=== PATIENT | male | born 1955 | race Caucasian/White ===

== ENCOUNTER 2020-04-20 20:18 | Inpatient (IN) ==
[2020-04-20] MEDS ORDERED: SODIUM CHLORIDE 0.9% 1,000 ML IV STA (21:05)
[2020-04-20 21:47] LABS: Basophils % 0.2 % (0.0-0.8); Eosinophils % 0.2 % (0.00-10.9); Hematocrit 42.4 VOL% (42.0-52.0); Hemoglobin 14.2 GM/DL (14.0-18.0); Immature Granulocytes % 0.4 %; Immature Granulocytes Absolute 0.02 #; Lymphocytes # 0.6 10*3/uL (1.4-4.0); Mean Corpuscular HGB Conc 33.5 GM/DL (32-36); Mean Corpuscular Volume 83.6 FL (87-102); Mean Platelet Volume 11.4 FL (9.6-12.0); Monocytes % 10.8 % (1.7-12.7); Neutrophils % 77.4 % (38.7-73.9); Platelet Count 201 T/CUMM (130-400); Red Blood Count 5.07 MC/CUMM (3.8-5.5); Red Cell Distribution Width 13.9 % (9.3-17.3); White Blood Count 5.3 T/CUMM (4-12)
[2020-04-20 22:08] LABS: Albumin 3.2 G/DL (3.4-5.0); Bilirubin,Total 0.4 MG/DL (0.2-1.0); Calcium 8.1 MG/DL (8.5-10.1); Ferritin 848.6 ng/ml (26-388); Osmolality,Calculated 279.8 MOS/KG (273-304); Total Protein 6.7 G/DL (6.4-8.3)
[2020-04-20 22:11] LABS: Lymphocytes 15 % (20-55); Segmented Neutrophils 77 % (50-85); Total Cells Counted 100
[2020-04-20 22:12] LABS: Platelet Estimate Adequate
[2020-04-20 22:42] LABS: ABG Base Excess -3.5 MMOL/L (-2.5-2.5); ABG HCO3 21.5 MMOL/L (20-26); ABG PH 7.408 (7.35-7.45); ABG PO2 72.9 MM HG (80-95); ABG TCO2 17.6 MMOL/L (23-27); Allen Test Positive; Pt O2 Delivery Device Room Air
[2020-04-20] MEDS ORDERED: LEVOFLOXACIN INJ 750 MG in PREMIX 1 EACH IV STA (23:28)
[2020-04-21] MEDS ORDERED: rOPINIRole 1 MG TABLET PO ONE (01:29)
[2020-04-21] MEDS ORDERED: ONDANSETRON 4 MG/2 ML VIAL IV PRN (02:20)
[2020-04-21] MEDS ORDERED: hydrALAZINE 20 MG/1 ML VIAL IV PRN (02:20)
[2020-04-21] MEDS: ENOXAPARIN 60 MG/0.6 ML SYRINGE SUBCUT SCH ×2 (03:45→14:04)
[2020-04-21] MEDS: SODIUM CHLORIDE 0.9% 1,000 ML IV SCH ×4 (03:45→22:59)
[2020-04-21 04:20] LABS: Basophils % 0.2 % (0.0-0.8); Eosinophils % 0.2 % (0.00-10.9); Hematocrit 37.9 VOL% (42.0-52.0); Hemoglobin 12.7 GM/DL (14.0-18.0); Immature Granulocytes % 0.2 %; Immature Granulocytes Absolute 0.01 #; Lymphocytes % 19.1 % (21.2-54.2); Mean Corpuscular HGB Conc 33.5 GM/DL (32-36); Mean Corpuscular Volume 83.1 FL (87-102); Mean Platelet Volume 10.4 FL (9.6-12.0); Monocytes % 12.7 % (1.7-12.7); Neutrophils % 67.6 % (38.7-73.9); Platelet Count 148 T/CUMM (130-400); Red Blood Count 4.56 MC/CUMM (3.8-5.5)
[2020-04-21 04:52] LABS: Hypochromasia 1+; Microcytosis Slight; Platelet Estimate Adequate
[2020-04-21] MEDS: ACETAMINOPHEN 325 MG TABLET PO PRN ×3 (04:53→22:00)
[2020-04-21 05:05] LABS: Calcium 7.8 MG/DL (8.5-10.1); Osmolality,Calculated 281.7 MOS/KG (273-304)
[2020-04-21 05:10] LABS: Risk Ratio 4.03; VLDL CHOLESTEROL 22.8 MG/DL
[2020-04-21] MEDS: BENZOCAINE/MENTHOL LOZENGE 18/BOX PO PRN (12:06)
[2020-04-21] MEDS: busPIRone 15 MG TABLET PO SCH ×2 (14:04→20:19)
[2020-04-21] MEDS: DEXAMETHASONE 4 MG TABLET PO SCH (14:04)
[2020-04-21] MEDS: CITALOPRAM 20 MG TABLET PO SCH (14:04)
[2020-04-21] MEDS: TAMSULOSIN 0.4 MG CAPSULE PO SCH (14:04)
[2020-04-21] MEDS: DUTASTERIDE 0.5 MG CAPSULE PO SCH (14:04)
[2020-04-21] MEDS: rOPINIRole 1 MG TABLET PO SCH (20:19)
[2020-04-21] MEDS: carvediloL 12.5 MG TABLET PO SCH (20:19)
[2020-04-21] MEDS: ALBUTEROL INHALER 18 GM INH SCH ×3 (20:20→21:35)
[2020-04-22] MEDS: ENOXAPARIN 60 MG/0.6 ML SYRINGE SUBCUT SCH ×2 (03:25→14:15)
[2020-04-22] MEDS: ACETAMINOPHEN 325 MG TABLET PO PRN ×2 (05:27→17:37)
[2020-04-22 06:15] LABS: Basophils % 0.2 % (0.0-0.8); Hematocrit 44.2 VOL% (42.0-52.0); Hemoglobin 14.3 GM/DL (14.0-18.0); Immature Granulocytes % 0.4 %; Immature Granulocytes Absolute 0.02 #; Lymphocytes # 0.7 10*3/uL (1.4-4.0); Lymphocytes % 13.3 % (21.2-54.2); Mean Corpuscular HGB Conc 32.4 GM/DL (32-36); Mean Corpuscular Volume 85.5 FL (87-102); Mean Platelet Volume 10.4 FL (9.6-12.0); Monocytes % 9.6 % (1.7-12.7); Neutrophils % 76.5 % (38.7-73.9); Platelet Count 192 T/CUMM (130-400); Red Blood Count 5.17 MC/CUMM (3.8-5.5); Red Cell Distribution Width 14.1 % (9.3-17.3)
[2020-04-22] MEDS: ALBUTEROL INHALER 18 GM INH SCH ×4 (06:29→18:23)
[2020-04-22 06:44] LABS: Albumin 2.8 G/DL (3.4-5.0); Bilirubin,Total 0.5 MG/DL (0.2-1.0); Calcium 8.4 MG/DL (8.5-10.1); Osmolality,Calculated 290.1 MOS/KG (273-304); Total Protein 7.1 G/DL (6.4-8.3)
[2020-04-22] MEDS: DUTASTERIDE 0.5 MG CAPSULE PO SCH (08:50)
[2020-04-22] MEDS: TAMSULOSIN 0.4 MG CAPSULE PO SCH (08:52)
[2020-04-22] MEDS: busPIRone 15 MG TABLET PO SCH ×3 (08:52→21:33)
[2020-04-22] MEDS: DEXAMETHASONE 4 MG TABLET PO SCH (08:52)
[2020-04-22] MEDS: carvediloL 12.5 MG TABLET PO SCH ×2 (08:52→21:33)
[2020-04-22] MEDS: CITALOPRAM 20 MG TABLET PO SCH (08:52)
[2020-04-22] MEDS: rOPINIRole 1 MG TABLET PO SCH ×2 (08:53→21:34)
[2020-04-22] MEDS: SIMVASTATIN 20 MG TABLET PO SCH (08:53)
[2020-04-22] MEDS: lisinopriL 20 MG TABLET PO SCH (08:53)
[2020-04-22] MEDS: SODIUM CHLORIDE 0.9% 1,000 ML IV SCH (08:58)
[2020-04-22] MEDS ORDERED: PANTOPRAZOLE 20 MG TABLET PO SCH (09:00)
[2020-04-22] MEDS: BENZOCAINE/MENTHOL LOZENGE 18/BOX PO PRN (10:54)
[2020-04-22 11:43] LABS: Apearance,Urine CLEAR (Clear); Bilirubin,Urine Negative (Negative); Blood, Urine Small mg/dL (Negative); Glucose,Urine (UA) Negative (Negative); Ketones,Urine Negative (Negative); Mucus,Urine Occasional /LPF (Occasional); Nitrite,Urine Negative (Negative); Protein,Urine 30 MG/DL; RBC,Urine <1 /HPF (0-4); Squamous Epithelial Cell,Urine Occasional /HPF (0-10); Urine Color Yellow (Yellow); Urine Specific Gravity 1.028 (1.001-1.035); Urine Urobilinogen < 2.0 EU/DL (0.2-1.0); WBC,Urine <1 /HPF (0-6)
[2020-04-22] MEDS ORDERED: LEVOFLOXACIN INJ 750 MG in PREMIX 1 EACH IV SCH (23:00)
[2020-04-23 00:37] LABS: ABG Base Excess -3.7 MMOL/L (-2.5-2.5); ABG HCO3 18.4 MMOL/L (20-26); ABG Oxygen Saturation 88.9 % (95-100); ABG PCO2 26.3 MM HG (35-48); ABG PH 7.463 (7.35-7.45); ABG PO2 52.8 MM HG (80-95); ABG TCO2 19.2 MMOL/L (23-27); Allen Test Positive
[2020-04-23] MEDS ORDERED: CLORAZEPATE 3.75 MG TABLET PO PRN (00:45)
[2020-04-23] MEDS: ALBUTEROL INHALER 18 GM INH SCH ×3 (01:15→14:30)
[2020-04-23] MEDS: SODIUM CHLORIDE 0.9% 1,000 ML IV SCH ×2 (01:15→14:55)
[2020-04-23] MEDS: ENOXAPARIN 60 MG/0.6 ML SYRINGE SUBCUT SCH (06:06)
[2020-04-23 06:11] LABS: Basophils % 0.1 % (0.0-0.8); Hemoglobin 13.6 GM/DL (14.0-18.0); Immature Granulocytes % 0.5 %; Immature Granulocytes Absolute 0.06 #; Lymphocytes # 0.6 10*3/uL (1.4-4.0); Lymphocytes % 4.9 % (21.2-54.2); Mean Corpuscular HGB Conc 32.4 GM/DL (32-36); Mean Corpuscular Volume 85.7 FL (87-102); Mean Platelet Volume 10.4 FL (9.6-12.0); Monocytes % 4.2 % (1.7-12.7); Neutrophils % 90.3 % (38.7-73.9); Platelet Count 217 T/CUMM (130-400); Red Cell Distribution Width 14.3 % (9.3-17.3); White Blood Count 11.7 T/CUMM (4-12)
[2020-04-23 06:39] LABS: Lymphocytes 11 % (20-55); Segmented Neutrophils 85 % (50-85); Total Cells Counted 100
[2020-04-23 06:40] LABS: Microcytosis 1+
[2020-04-23 06:41] LABS: Hypochromasia 1+; Platelet Estimate Normal
[2020-04-23 06:44] LABS: Albumin 2.7 G/DL (3.4-5.0); Bilirubin,Total 0.6 MG/DL (0.2-1.0); Calcium 8.3 MG/DL (8.5-10.1); Osmolality,Calculated 290.1 MOS/KG (273-304); Total Protein 6.7 G/DL (6.4-8.3)
[2020-04-23] MEDS ORDERED: CLORAZEPATE 7.5 MG TABLET PO PRN (08:30)
[2020-04-23] MEDS: rOPINIRole 1 MG TABLET PO SCH ×2 (08:46→20:59)
[2020-04-23] MEDS: lisinopriL 20 MG TABLET PO SCH (08:46)
[2020-04-23] MEDS: busPIRone 15 MG TABLET PO SCH ×3 (08:47→20:59)
[2020-04-23] MEDS: carvediloL 12.5 MG TABLET PO SCH ×2 (08:47→20:59)
[2020-04-23] MEDS: DEXAMETHASONE 4 MG TABLET PO SCH (08:47)
[2020-04-23] MEDS: CITALOPRAM 20 MG TABLET PO SCH (08:47)
[2020-04-23] MEDS: TAMSULOSIN 0.4 MG CAPSULE PO SCH (08:47)
[2020-04-23] MEDS: PANTOPRAZOLE 40 MG TABLET PO SCH (08:47)
[2020-04-23] MEDS: SIMVASTATIN 20 MG TABLET PO SCH (08:47)
[2020-04-23] MEDS: DUTASTERIDE 0.5 MG CAPSULE PO SCH (08:47)
[2020-04-23 09:41] LABS: Hematocrit 45.6 VOL% (42.0-52.0); Hemoglobin 14.8 GM/DL (14.0-18.0)
[2020-04-23] MEDS ORDERED: REMDESIVIR 200 MG in SODIUM CHLORIDE 0.9% 210 ML IV ONE (12:00)
[2020-04-23] MEDS ORDERED: LORazepam 2 MG/1 ML VIAL ONE (14:28)
[2020-04-23] MEDS ORDERED: LORazepam 2 MG/1 ML VIAL IV ONE ×2 (14:35→14:48)
[2020-04-23 14:54] LABS: ABG Base Excess -6.5 MMOL/L (-2.5-2.5); ABG Oxygen Saturation 86.5 % (95-100); ABG PCO2 47.3 MM HG (35-48); ABG PH 7.257 (7.35-7.45); ABG PO2 60.5 MM HG (80-95); ABG TCO2 18.5 MMOL/L (23-27); Allen Test Positive; Pt O2 Delivery Device Other
[2020-04-23] MEDS ORDERED: HALOPERIDOL 5 MG/ML AMP IM ONE (15:28)
[2020-04-23] MEDS ORDERED: HALOPERIDOL 5 MG/ML AMP ONE (15:29)
[2020-04-23 15:42] LABS: Apearance,Urine CLOUDY (Clear); Bacteria,Urine Occasional /HPF (Few); Bilirubin,Urine Negative (Negative); Blood, Urine Large mg/dL (Negative); Glucose,Urine (UA) Negative (Negative); Ketones,Urine Negative (Negative); Nitrite,Urine Negative (Negative); Protein,Urine >=500 MG/DL; Squamous Epithelial Cell,Urine Occasional /HPF (0-10); Urine Specific Gravity 1.039 (1.001-1.035); Urine Urobilinogen < 2.0 EU/DL (0.2-1.0); WBC,Urine 2 /HPF (0-6)
[2020-04-23 15:47] LABS: Urine Color Yellow (Yellow)
[2020-04-23] MEDS: methylPREDNISolone SOD SUC 40 MG/1 ML VIAL IV SCH ×2 (16:14→21:20)
[2020-04-23] MEDS ORDERED: SUCCINYLCHOLINE 200 MG/10 ML VIAL ONE (16:57)
[2020-04-23] MEDS ORDERED: ETOMIDATE 20 MG/10 ML VIAL IV ONE ×2 (16:57→17:00)
[2020-04-23 17:00] LABS: Hematocrit 45.1 VOL% (42.0-52.0); Hemoglobin 14.3 GM/DL (14.0-18.0)
[2020-04-23] MEDS ORDERED: SUCCINYLCHOLINE 200 MG/10 ML VIAL IV ONE (17:00)
[2020-04-23] MEDS ORDERED: FUROSEMIDE 40 MG/4 ML VIAL IV ONE (17:09)
[2020-04-23] MEDS ORDERED: ALBUMIN 25% 25 GM in PREMIX 1 EACH IV ONE (17:40)
[2020-04-23 18:46] LABS: ABG Base Excess -6.2 MMOL/L (-2.5-2.5); ABG HCO3 19.4 MMOL/L (20-26); ABG Oxygen Saturation 98.6 % (95-100); ABG PCO2 41.6 MM HG (35-48); ABG PH 7.293 (7.35-7.45); ABG TCO2 17.8 MMOL/L (23-27)
[2020-04-23] MEDS: MIDAZOLAM 100 MG in SODIUM CHLORIDE 0.9% 80 ML IV PRN (19:15)
[2020-04-23] MEDS: fentaNYL INJ 1,250 MCG in SODIUM CHLORIDE 0.9% 225 ML IV PRN (19:15)
[2020-04-24] MEDS: ACETAMINOPHEN 325 MG TABLET PO PRN ×2 (00:31→15:50)
[2020-04-24] MEDS: fentaNYL INJ 1,250 MCG in SODIUM CHLORIDE 0.9% 225 ML IV PRN ×4 (01:16→19:30)
[2020-04-24] MEDS ORDERED: PHENYLEPHRINE DRIP 40 MG/250 ML PREMIX IV ONE (02:02)
[2020-04-24] MEDS: PHENYLEPHRINE DRIP 40 MG/250 ML PREMIX IV PRN ×5 (02:11→10:47)
[2020-04-24] MEDS: dilTIAZem Drip 125 MG/125 ML PREMIX IV SCH (02:22)
[2020-04-24] MEDS: ALBUTEROL INHALER 18 GM INH SCH ×4 (02:23→21:26)
[2020-04-24] MEDS: methylPREDNISolone SOD SUC 40 MG/1 ML VIAL IV SCH ×4 (04:15→21:33)
[2020-04-24] MEDS: MIDAZOLAM 100 MG in SODIUM CHLORIDE 0.9% 80 ML IV PRN (04:16)
[2020-04-24 04:34] LABS: Basophils % 0.1 % (0.0-0.8); Hematocrit 42.8 VOL% (42.0-52.0); Hemoglobin 13.4 GM/DL (14.0-18.0); Immature Granulocytes % 3.1 %; Immature Granulocytes Absolute 0.77 #; Lymphocytes # 0.5 10*3/uL (1.4-4.0); Lymphocytes % 1.9 % (21.2-54.2); Mean Corpuscular HGB Conc 31.3 GM/DL (32-36); Mean Corpuscular Volume 88.4 FL (87-102); Mean Platelet Volume 10.5 FL (9.6-12.0); Monocytes % 3.4 % (1.7-12.7); Neutrophils % 91.5 % (38.7-73.9); Platelet Count 242 T/CUMM (130-400); Red Blood Count 4.84 MC/CUMM (3.8-5.5); Red Cell Distribution Width 14.7 % (9.3-17.3); White Blood Count 24.7 T/CUMM (4-12)
[2020-04-24] MEDS: SODIUM CHLORIDE 0.9% 1,000 ML IV SCH (04:58)
[2020-04-24 04:59] LABS: Band Neutrophils 2 % (0-10); Hypochromasia Slight; Lymphocytes 4 % (20-55); Platelet Estimate Adequate; Segmented Neutrophils 92 % (50-85); Total Cells Counted 100
[2020-04-24 05:00] LABS: Microcytosis 1+
[2020-04-24 05:08] LABS: Albumin 2.6 G/DL (3.4-5.0); Bilirubin,Total 1.7 MG/DL (0.2-1.0); Calcium 8.2 MG/DL (8.5-10.1); Osmolality,Calculated 303.7 MOS/KG (273-304); Total Protein 6.4 G/DL (6.4-8.3)
[2020-04-24] MEDS: rOPINIRole 1 MG TABLET PO SCH (08:46)
[2020-04-24] MEDS: DUTASTERIDE 0.5 MG CAPSULE PO SCH (08:46)
[2020-04-24] MEDS: TAMSULOSIN 0.4 MG CAPSULE PO SCH (08:46)
[2020-04-24] MEDS: SIMVASTATIN 20 MG TABLET PO SCH (08:47)
[2020-04-24] MEDS: PANTOPRAZOLE 40 MG TABLET PO SCH (08:47)
[2020-04-24] MEDS: CITALOPRAM 20 MG TABLET PO SCH (08:47)
[2020-04-24] MEDS: NOREPINEPHRINE 8 MG in SODIUM CHLORIDE 0.9% 242 ML IV PRN ×2 (09:12→20:30)
[2020-04-24] MEDS: lisinopriL 20 MG TABLET PO SCH (09:21)
[2020-04-24] MEDS: carvediloL 12.5 MG TABLET PO SCH (09:21)
[2020-04-24] MEDS ORDERED: VECURONIUM 10 MG VIAL IV ONE ×2 (09:31→09:34)
[2020-04-24] MEDS: busPIRone 15 MG TABLET PO SCH (10:38)
[2020-04-24] MEDS ORDERED: PHENYLEPHRINE INJ 80 MG in SODIUM CHLORIDE 0.9% 242 ML IV PRN (11:00)
[2020-04-24] MEDS ORDERED: cefTRIAXone 1,000 MG in SYRINGE 1 EACH IV SCH (12:00)
[2020-04-24] MEDS: ROCURONIUM 500 MG in SODIUM CHLORIDE 0.9% 500 ML IV PRN ×2 (12:30→22:14)
[2020-04-24] MEDS ORDERED: GLUCAGON 1 MG VIAL IM PRN (12:41)
[2020-04-24] MEDS ORDERED: DEXTROSE 10% 250 ML BAG IV PRN (12:41)
[2020-04-24 13:01] LABS: ABG Base Excess -8.6 MMOL/L (-2.5-2.5); ABG HCO3 17.5 MMOL/L (20-26); ABG PCO2 54.3 MM HG (35-48); ABG PO2 77.5 MM HG (80-95); ABG TCO2 18.5 MMOL/L (23-27)
[2020-04-24] MEDS ORDERED: METOPROLOL TARTRATE 5 MG/5 ML VIAL IV ONE ×2 (13:18)
[2020-04-24 13:20] LABS: ABG PH 7.189 (7.35-7.45)
[2020-04-24] MEDS: METOPROLOL TARTRATE 5 MG/5 ML VIAL IV SCH ×3 (13:21→13:32)
[2020-04-24] MEDS ORDERED: AMIODARONE INJ 450 MG in DEXTROSE 5% 241 ML IV SCH (13:30)
[2020-04-24] MEDS ORDERED: SODIUM BICARBONATE 50 MEQ/50 ML VIAL IV ONE ×2 (13:52→14:17)
[2020-04-24] MEDS ORDERED: PHENYLEPHRINE INJ 160 MG in SODIUM CHLORIDE 0.9% 234 ML IV PRN (14:00)
[2020-04-24] MEDS: HEPARIN DRIP 25,000 UNITS/500 ML PREMIX IV SCH (15:07)
[2020-04-24] MEDS: cefTRIAXone 1,000 MG in SYRINGE 1 EACH IV SCH (15:25)
[2020-04-24] MEDS: AZITHROMYCIN INJ 500 MG in SODIUM CHLORIDE 0.9% 250 ML IV SCH (15:35)
[2020-04-24 16:01] LABS: ABG Base Excess -6.3 MMOL/L (-2.5-2.5); ABG HCO3 19.3 MMOL/L (20-26); ABG Oxygen Saturation 93.8 % (95-100); ABG PCO2 50.4 MM HG (35-48); ABG PH 7.244 (7.35-7.45); ABG PO2 75.7 MM HG (80-95); ABG TCO2 19.2 MMOL/L (23-27)
[2020-04-24 16:16] LABS: Osmolality,Calculated 312.6 MOS/KG (273-304)
[2020-04-24] MEDS: REMDESIVIR 100 MG in SODIUM CHLORIDE 0.9% 230 ML IV SCH (17:07)
[2020-04-24] MEDS: INSULIN REGULAR 100 UNIT/ML SUBCUT SCH (17:25)
[2020-04-24] MEDS ORDERED: NOREPINEPHRINE 4 MG/4 ML VIAL IV ONE (20:07)
[2020-04-24] MEDS ORDERED: METOPROLOL TARTRATE 25 MG TABLET PO SCH (21:00)
[2020-04-24] MEDS: AMIODARONE INJ 450 MG in DEXTROSE 5% 241 ML IV SCH (22:23)
[2020-04-25] MEDS: INSULIN REGULAR 100 UNIT/ML SUBCUT SCH ×4 (00:45→18:21)
[2020-04-25] MEDS: ALBUTEROL INHALER 18 GM INH SCH ×4 (01:24→18:22)
[2020-04-25] MEDS: MIDAZOLAM 100 MG in SODIUM CHLORIDE 0.9% 80 ML IV PRN (01:28)
[2020-04-25] MEDS: NOREPINEPHRINE 8 MG in SODIUM CHLORIDE 0.9% 242 ML IV PRN ×4 (01:28→20:58)
[2020-04-25] MEDS: dilTIAZem Drip 125 MG/125 ML PREMIX IV SCH (03:12)
[2020-04-25 03:51] LABS: ABG Base Excess -7.2 MMOL/L (-2.5-2.5); ABG HCO3 18.7 MMOL/L (20-26); ABG PCO2 47.3 MM HG (35-48); ABG PH 7.244 (7.35-7.45); ABG TCO2 18.3 MMOL/L (23-27)
[2020-04-25] MEDS: fentaNYL INJ 1,250 MCG in SODIUM CHLORIDE 0.9% 225 ML IV PRN ×3 (03:52→19:28)
[2020-04-25 04:20] LABS: Albumin 2.1 G/DL (3.4-5.0); Bilirubin,Total 0.8 MG/DL (0.2-1.0); Calcium 7.8 MG/DL (8.5-10.1); Osmolality,Calculated 324.4 MOS/KG (273-304); Total Protein 5.8 G/DL (6.4-8.3)
[2020-04-25] MEDS: methylPREDNISolone SOD SUC 40 MG/1 ML VIAL IV SCH ×4 (04:55→21:11)
[2020-04-25] MEDS: PANTOPRAZOLE 40 MG TABLET PO SCH (08:12)
[2020-04-25] MEDS: CITALOPRAM 20 MG TABLET PO SCH (08:12)
[2020-04-25] MEDS: DUTASTERIDE 0.5 MG CAPSULE PO SCH (08:12)
[2020-04-25] MEDS: HEPARIN DRIP 25,000 UNITS/500 ML PREMIX IV SCH (10:15)
[2020-04-25] MEDS: REMDESIVIR 100 MG in SODIUM CHLORIDE 0.9% 230 ML IV SCH (12:14)
[2020-04-25] MEDS: AZITHROMYCIN INJ 500 MG in SODIUM CHLORIDE 0.9% 250 ML IV SCH (13:21)
[2020-04-25] MEDS: AMIODARONE INJ 450 MG in DEXTROSE 5% 241 ML IV SCH (13:44)
[2020-04-25] MEDS: ROCURONIUM 500 MG in SODIUM CHLORIDE 0.9% 500 ML IV PRN (13:54)
[2020-04-25 15:28] LABS: Basophils % 0.1 % (0.0-0.8); Hematocrit 41.6 VOL% (42.0-52.0); Immature Granulocytes % 0.7 %; Immature Granulocytes Absolute 0.11 #; Lymphocytes # 0.4 10*3/uL (1.4-4.0); Lymphocytes % 2.5 % (21.2-54.2); Mean Corpuscular HGB Conc 31.3 GM/DL (32-36); Mean Corpuscular Volume 89.8 FL (87-102); Monocytes % 3.5 % (1.7-12.7); Neutrophils % 93.2 % (38.7-73.9); Platelet Count 159 T/CUMM (130-400); Red Blood Count 4.63 MC/CUMM (3.8-5.5); Red Cell Distribution Width 15.9 % (9.3-17.3); White Blood Count 16.5 T/CUMM (4-12)
[2020-04-25] MEDS: cefTRIAXone 1,000 MG in SYRINGE 1 EACH IV SCH (15:29)
[2020-04-25 16:07] LABS: Band Neutrophils 2 % (0-10); Lymphocytes 3 % (20-55); Platelet Estimate Normal; Segmented Neutrophils 92 % (50-85); Total Cells Counted 100
[2020-04-25] MEDS: ACETAMINOPHEN 325 MG TABLET PO PRN (18:22)
[2020-04-26] MEDS: ALBUTEROL INHALER 18 GM INH SCH ×4 (01:20→18:54)
[2020-04-26] MEDS: INSULIN REGULAR 100 UNIT/ML SUBCUT SCH ×4 (01:20→18:54)
[2020-04-26] MEDS: HEPARIN DRIP 25,000 UNITS/500 ML PREMIX IV SCH ×3 (01:20→20:50)
[2020-04-26] MEDS: ACETAMINOPHEN 325 MG TABLET PO PRN ×2 (01:35→05:58)
[2020-04-26] MEDS: NOREPINEPHRINE 8 MG in SODIUM CHLORIDE 0.9% 242 ML IV PRN ×2 (02:18→13:20)
[2020-04-26] MEDS: fentaNYL INJ 1,250 MCG in SODIUM CHLORIDE 0.9% 225 ML IV PRN (02:59)
[2020-04-26] MEDS: methylPREDNISolone SOD SUC 40 MG/1 ML VIAL IV SCH ×4 (04:48→21:12)
[2020-04-26 05:11] LABS: ABG Base Excess -9.1 MMOL/L (-2.5-2.5); ABG HCO3 17.3 MMOL/L (20-26); ABG Oxygen Saturation 98.7 % (95-100); ABG PH 7.256 (7.35-7.45); ABG TCO2 15.9 MMOL/L (23-27)
[2020-04-26 05:26] LABS: Basophils % 0.2 % (0.0-0.8); Hematocrit 40.6 VOL% (42.0-52.0); Hemoglobin 12.9 GM/DL (14.0-18.0); Immature Granulocytes % 1.1 %; Immature Granulocytes Absolute 0.22 #; Lymphocytes # 0.4 10*3/uL (1.4-4.0); Lymphocytes % 2.2 % (21.2-54.2); Mean Corpuscular HGB Conc 31.8 GM/DL (32-36); Mean Corpuscular Volume 88.5 FL (87-102); Mean Platelet Volume 11.5 FL (9.6-12.0); Monocytes % 4.2 % (1.7-12.7); Neutrophils % 92.3 % (38.7-73.9); Platelet Count 187 T/CUMM (130-400); Red Blood Count 4.59 MC/CUMM (3.8-5.5); Red Cell Distribution Width 15.8 % (9.3-17.3); White Blood Count 19.4 T/CUMM (4-12)
[2020-04-26 05:54] LABS: Albumin 1.9 G/DL (3.4-5.0); Bilirubin,Total 1.1 MG/DL (0.2-1.0); Calcium 7.9 MG/DL (8.5-10.1); Osmolality,Calculated 338.1 MOS/KG (273-304); Total Protein 5.7 G/DL (6.4-8.3)
[2020-04-26] MEDS: AMIODARONE INJ 450 MG in DEXTROSE 5% 241 ML IV SCH ×3 (06:16→20:50)
[2020-04-26] MEDS: fentaNYL INJ 2,500 MCG in DEXTROSE 5% 75 ML IV PRN (08:21)
[2020-04-26] MEDS: PANTOPRAZOLE 40 MG TABLET PO SCH (08:23)
[2020-04-26] MEDS: DUTASTERIDE 0.5 MG CAPSULE PO SCH (08:23)
[2020-04-26] MEDS: CITALOPRAM 20 MG TABLET PO SCH (08:23)
[2020-04-26 10:23] LABS: Apearance,Urine CLOUDY (Clear); Bilirubin,Urine Negative (Negative); Blood, Urine Moderate mg/dL (Negative); Glucose,Urine (UA) Negative (Negative); Ketones,Urine Negative (Negative); Mucus,Urine Occasional /LPF (Occasional); Nitrite,Urine Negative (Negative); Protein,Urine 100 MG/DL; Squamous Epithelial Cell,Urine Occasional /HPF (0-10); Urine Color Yellow (Yellow); Urine Specific Gravity 1.018 (1.001-1.035); Urine Urobilinogen < 2.0 EU/DL (0.2-1.0); WBC,Urine 10 /HPF (0-6)
[2020-04-26 10:39] LABS: Bilirubin,Direct 0.17 MG/DL (0.0-0.20); Bilirubin,Indirect 0.2 MG/DL (0.0-1.0); Bilirubin,Total 0.4 MG/DL (0.2-1.0); Total Protein 5.7 G/DL (6.4-8.3)
[2020-04-26 11:15] LABS: Band Neutrophils 4 % (0-10); Lymphocytes 3 % (20-55); Metamyelocytes 1 %; Segmented Neutrophils 88 % (50-85); Total Cells Counted 100
[2020-04-26 11:16] LABS: Hypochromasia 2+; Platelet Estimate Adequate; Polychromasia Slight
[2020-04-26] MEDS: AZITHROMYCIN INJ 500 MG in SODIUM CHLORIDE 0.9% 250 ML IV SCH (11:39)
[2020-04-26] MEDS: REMDESIVIR 100 MG in SODIUM CHLORIDE 0.9% 230 ML IV SCH (13:06)
[2020-04-26] MEDS ORDERED: SODIUM CHLORIDE 0.9% 500 ML IV ONE (14:36)
[2020-04-26] MEDS: cefTRIAXone 1,000 MG in SYRINGE 1 EACH IV SCH (15:56)
[2020-04-26] MEDS: ROCURONIUM 1,000 MG in DEXTROSE 5% 175 ML IV PRN (17:05)
[2020-04-26] MEDS: AMIODARONE 200 MG TABLET PO SCH (22:24)
[2020-04-26] MEDS: MIDAZOLAM 100 MG in SODIUM CHLORIDE 0.9% 80 ML IV PRN ×2 (22:32)
[2020-04-27] MEDS: ALBUTEROL INHALER 18 GM INH SCH ×4 (00:40→20:16)
[2020-04-27] MEDS: INSULIN REGULAR 100 UNIT/ML SUBCUT SCH ×4 (01:36→17:30)
[2020-04-27] MEDS: HEPARIN DRIP 25,000 UNITS/500 ML PREMIX IV SCH ×3 (01:56→23:48)
[2020-04-27] MEDS ORDERED: METOPROLOL TARTRATE 5 MG/5 ML VIAL IV ONE (02:11)
[2020-04-27] MEDS: NOREPINEPHRINE 8 MG in SODIUM CHLORIDE 0.9% 242 ML IV PRN (02:13)
[2020-04-27] MEDS: methylPREDNISolone SOD SUC 40 MG/1 ML VIAL IV SCH ×4 (04:38→21:32)
[2020-04-27 05:59] LABS: ABG Base Excess -6.6 MMOL/L (-2.5-2.5); ABG HCO3 19.1 MMOL/L (20-26); ABG Oxygen Saturation 97.2 % (95-100); ABG PCO2 46.8 MM HG (35-48); ABG PH 7.257 (7.35-7.45); ABG TCO2 18.4 MMOL/L (23-27); Allen Test Positive; Pt O2 Delivery Device Ventilator
[2020-04-27 06:20] LABS: Albumin 1.9 G/DL (3.4-5.0); Bilirubin,Total 0.7 MG/DL (0.2-1.0); Calcium 8.2 MG/DL (8.5-10.1); Osmolality,Calculated 330.7 MOS/KG (273-304); Total Protein 6.1 G/DL (6.4-8.3)
[2020-04-27] MEDS: fentaNYL INJ 2,500 MCG in DEXTROSE 5% 75 ML IV PRN (06:30)
[2020-04-27] MEDS: PANTOPRAZOLE 40 MG TABLET PO SCH (08:08)
[2020-04-27] MEDS: DUTASTERIDE 0.5 MG CAPSULE PO SCH (08:08)
[2020-04-27] MEDS: CITALOPRAM 20 MG TABLET PO SCH (08:08)
[2020-04-27] MEDS: AMIODARONE 200 MG TABLET PO SCH (08:08)
[2020-04-27 08:09] LABS: Basophils % 0.2 % (0.0-0.8); Hematocrit 45.4 VOL% (42.0-52.0); Immature Granulocytes % 1.3 %; Immature Granulocytes Absolute 0.28 #; Lymphocytes # 0.4 10*3/uL (1.4-4.0); Lymphocytes % 1.8 % (21.2-54.2); Mean Corpuscular HGB Conc 30.8 GM/DL (32-36); Mean Platelet Volume 11.2 FL (9.6-12.0); Monocytes % 4.9 % (1.7-12.7); NRBC # 0.02 10*3/uL; Neutrophils % 91.8 % (38.7-73.9); Platelet Count 204 T/CUMM (130-400); Red Cell Distribution Width 15.6 % (9.3-17.3); White Blood Count 21.4 T/CUMM (4-12)
[2020-04-27] MEDS ORDERED: AMIODARONE INJ 450 MG in DEXTROSE 5% 241 ML IV SCH (10:00)
[2020-04-27 10:43] LABS: Band Neutrophils 2 % (0-10); Lymphocytes 8 % (20-55); Metamyelocytes 1 %; Segmented Neutrophils 86 % (50-85); Total Cells Counted 100
[2020-04-27 10:44] LABS: Burr Cells Few; Hypochromasia 1+; Platelet Estimate Normal
[2020-04-27] MEDS ORDERED: METOPROLOL TARTRATE 25 MG TABLET PO ONE (11:38)
[2020-04-27] MEDS: AZITHROMYCIN INJ 500 MG in SODIUM CHLORIDE 0.9% 250 ML IV SCH (11:59)
[2020-04-27] MEDS: ROCURONIUM 1,000 MG in DEXTROSE 5% 175 ML IV PRN (12:33)
[2020-04-27] MEDS: REMDESIVIR 100 MG in SODIUM CHLORIDE 0.9% 230 ML IV SCH (13:47)
[2020-04-27] MEDS: cefTRIAXone 1,000 MG in SYRINGE 1 EACH IV SCH (16:32)
[2020-04-27] MEDS ORDERED: METOPROLOL TARTRATE 25 MG TABLET PO SCH (18:00)
[2020-04-27] MEDS: AMIODARONE INJ 450 MG in DEXTROSE 5% 241 ML IV SCH (18:07)
[2020-04-27] MEDS: METOPROLOL TARTRATE 25 MG TABLET PO SCH (21:32)
[2020-04-28] MEDS: INSULIN REGULAR 100 UNIT/ML SUBCUT SCH ×4 (00:15→18:22)
[2020-04-28] MEDS: ALBUTEROL INHALER 18 GM INH SCH ×4 (01:10→20:13)
[2020-04-28] MEDS: METOPROLOL TARTRATE 25 MG TABLET PO SCH ×4 (01:10→20:13)
[2020-04-28] MEDS: fentaNYL INJ 2,500 MCG in DEXTROSE 5% 75 ML IV PRN (03:20)
[2020-04-28] MEDS: methylPREDNISolone SOD SUC 40 MG/1 ML VIAL IV SCH ×4 (04:11→21:50)
[2020-04-28 04:22] LABS: Basophils % 0.1 % (0.0-0.8); Hematocrit 40.9 VOL% (42.0-52.0); Hemoglobin 12.5 GM/DL (14.0-18.0); Immature Granulocytes Absolute 0.13 #; Lymphocytes # 0.3 10*3/uL (1.4-4.0); Lymphocytes % 1.9 % (21.2-54.2); Mean Corpuscular HGB Conc 30.6 GM/DL (32-36); Mean Corpuscular Volume 89.3 FL (87-102); Mean Platelet Volume 12.2 FL (9.6-12.0); Monocytes % 4.8 % (1.7-12.7); NRBC # 0.03 10*3/uL; Neutrophils % 92.2 % (38.7-73.9); Platelet Count 170 T/CUMM (130-400); Red Blood Count 4.58 MC/CUMM (3.8-5.5); Red Cell Distribution Width 15.6 % (9.3-17.3)
[2020-04-28 05:00] LABS: ABG Base Excess -6.8 MMOL/L (-2.5-2.5); ABG Oxygen Saturation 96.3 % (95-100); ABG PCO2 44.8 MM HG (35-48); ABG PH 7.267 (7.35-7.45); ABG PO2 92.4 MM HG (80-95); ABG TCO2 21.3 MMOL/L (23-27); Allen Test Positive; Pt O2 Delivery Device Ventilator
[2020-04-28 05:07] LABS: Calcium 7.9 MG/DL (8.5-10.1); Osmolality,Calculated 339.7 MOS/KG (273-304)
[2020-04-28 05:23] LABS: Hypochromasia 1+; Lymphocytes 1 % (20-55); Nucleated Red Blood Cells 1 (0-5); Ovalocytes Slight; Platelet Estimate Adequate; Segmented Neutrophils 93 % (50-85); Total Cells Counted 100
[2020-04-28] MEDS: AMIODARONE INJ 450 MG in DEXTROSE 5% 241 ML IV SCH ×3 (06:47→22:49)
[2020-04-28 07:26] LABS: Hepatitis B Core IgM Quant 0.15 Index; Hepatitis B Surface Ag Quant 0.12 Index; Hepatitis B Surface Ag Result Negative (Negative); Hepatitis C Virus Ab Quant 0.02 Index; Hepatitis C Virus Ab Result Negative (Negative)
[2020-04-28] MEDS: ROCURONIUM 1,000 MG in DEXTROSE 5% 175 ML IV PRN (09:21)
[2020-04-28] MEDS: CITALOPRAM 20 MG TABLET PO SCH (10:12)
[2020-04-28] MEDS: DUTASTERIDE 0.5 MG CAPSULE PO SCH (10:12)
[2020-04-28] MEDS: PANTOPRAZOLE 40 MG VIAL IV SCH ×2 (10:20→10:29)
[2020-04-28] MEDS: AZITHROMYCIN INJ 500 MG in SODIUM CHLORIDE 0.9% 250 ML IV SCH (11:41)
[2020-04-28] MEDS: HEPARIN DRIP 25,000 UNITS/500 ML PREMIX IV SCH (12:55)
[2020-04-28] MEDS: cefTRIAXone 1,000 MG in SYRINGE 1 EACH IV SCH (15:16)
[2020-04-28] MEDS: POLYETHYLENE GLYCOL POWDER 17 GM PACK PO SCH (16:06)
[2020-04-28] MEDS: AMIODARONE 200 MG TABLET PO SCH (20:13)
[2020-04-28] MEDS: MIDAZOLAM 100 MG in SODIUM CHLORIDE 0.9% 80 ML IV PRN (21:50)
[2020-04-29] MEDS: INSULIN REGULAR 100 UNIT/ML SUBCUT SCH ×4 (00:47→18:08)
[2020-04-29] MEDS: ALBUTEROL INHALER 18 GM INH SCH ×4 (00:47→19:23)
[2020-04-29] MEDS: fentaNYL INJ 2,500 MCG in DEXTROSE 5% 75 ML IV PRN (02:32)
[2020-04-29] MEDS: METOPROLOL TARTRATE 25 MG TABLET PO SCH ×3 (02:32→20:50)
[2020-04-29] MEDS: AMIODARONE INJ 450 MG in DEXTROSE 5% 241 ML IV SCH (02:43)
[2020-04-29] MEDS: methylPREDNISolone SOD SUC 40 MG/1 ML VIAL IV SCH ×4 (03:10→22:00)
[2020-04-29 04:55] LABS: ABG Base Excess -5.4 MMOL/L (-2.5-2.5); ABG HCO3 20.7 MMOL/L (20-26); ABG Oxygen Saturation 98.1 % (95-100); ABG PCO2 42.5 MM HG (35-48); ABG PH 7.305 (7.35-7.45); ABG PO2 147.9 MM HG (80-95); Allen Test Positive; Pt O2 Delivery Device Ventilator
[2020-04-29 05:41] LABS: Basophils % 0.1 % (0.0-0.8); Hemoglobin 11.5 GM/DL (14.0-18.0); Immature Granulocytes % 1.7 %; Lymphocytes # 0.3 10*3/uL (1.4-4.0); Lymphocytes % 2.2 % (21.2-54.2); Mean Corpuscular HGB Conc 31.1 GM/DL (32-36); Mean Corpuscular Volume 88.7 FL (87-102); Mean Platelet Volume 12.3 FL (9.6-12.0); Monocytes % 5.3 % (1.7-12.7); NRBC # 0.03 10*3/uL; Neutrophils % 90.7 % (38.7-73.9); Platelet Count 173 T/CUMM (130-400); Red Blood Count 4.17 MC/CUMM (3.8-5.5); White Blood Count 11.5 T/CUMM (4-12)
[2020-04-29 06:03] LABS: Burr Cells Slight; Ovalocytes Slight; Platelet Estimate Adequate; Segmented Neutrophils 97 % (50-85); Total Cells Counted 100
[2020-04-29] MEDS: HEPARIN DRIP 25,000 UNITS/500 ML PREMIX IV SCH ×3 (06:08→19:17)
[2020-04-29 06:14] LABS: Calcium 8.1 MG/DL (8.5-10.1); Osmolality,Calculated 327.4 MOS/KG (273-304)
[2020-04-29 07:18] VITALS: BP 112/62
[2020-04-29] MEDS: CITALOPRAM 20 MG TABLET PO SCH (08:41)
[2020-04-29] MEDS: AMIODARONE 200 MG TABLET PO SCH (08:41)
[2020-04-29] MEDS: PANTOPRAZOLE 40 MG VIAL IV SCH (08:41)
[2020-04-29] MEDS: POLYETHYLENE GLYCOL POWDER 17 GM PACK PO SCH (08:42)
[2020-04-29] MEDS: DUTASTERIDE 0.5 MG CAPSULE PO SCH (08:45)
[2020-04-29] MEDS: METOCLOPRAMIDE 10 MG/2 ML VIAL IV SCH ×2 (12:43→18:08)
[2020-04-29] MEDS: SODIUM CHLORIDE 0.9% 1,000 ML IV SCH (14:20)
[2020-04-29] MEDS: cefTRIAXone 1,000 MG in SYRINGE 1 EACH IV SCH (15:13)
[2020-04-29] MEDS: MIDAZOLAM 100 MG in SODIUM CHLORIDE 0.9% 80 ML IV PRN (17:55)
[2020-04-30] MEDS: fentaNYL INJ 2,500 MCG in DEXTROSE 5% 75 ML IV PRN (00:07)
[2020-04-30] MEDS: INSULIN REGULAR 100 UNIT/ML SUBCUT SCH ×4 (01:54→17:12)
[2020-04-30] MEDS: ALBUTEROL INHALER 18 GM INH SCH ×4 (01:54→18:58)
[2020-04-30] MEDS: METOCLOPRAMIDE 10 MG/2 ML VIAL IV SCH ×4 (01:54→18:58)
[2020-04-30 04:07] LABS: ABG Base Excess -4.6 MMOL/L (-2.5-2.5); ABG HCO3 21.5 MMOL/L (20-26); ABG Oxygen Saturation 97.8 % (95-100); ABG PCO2 43.7 MM HG (35-48); ABG PO2 119.1 MM HG (80-95); ABG TCO2 22.9 MMOL/L (23-27); Allen Test Positive; Pt O2 Delivery Device Ventilator
[2020-04-30 04:29] LABS: Basophils % 0.1 % (0.0-0.8); Hematocrit 36.9 VOL% (42.0-52.0); Hemoglobin 11.7 GM/DL (14.0-18.0); Immature Granulocytes % 1.8 %; Immature Granulocytes Absolute 0.22 #; Lymphocytes # 0.2 10*3/uL (1.4-4.0); Lymphocytes % 1.3 % (21.2-54.2); Mean Corpuscular HGB Conc 31.7 GM/DL (32-36); Mean Corpuscular Volume 87.2 FL (87-102); Mean Platelet Volume 12.6 FL (9.6-12.0); Neutrophils % 91.8 % (38.7-73.9); Platelet Count 182 T/CUMM (130-400); Red Blood Count 4.23 MC/CUMM (3.8-5.5); Red Cell Distribution Width 14.6 % (9.3-17.3); White Blood Count 12.5 T/CUMM (4-12)
[2020-04-30 04:55] LABS: Osmolality,Calculated 328.4 MOS/KG (273-304)
[2020-04-30 04:57] LABS: Platelet Estimate Adequate; Segmented Neutrophils 96 % (50-85); Total Cells Counted 100
[2020-04-30 04:58] LABS: Burr Cells Slight; Hypochromasia Slight; Ovalocytes Slight
[2020-04-30] MEDS: methylPREDNISolone SOD SUC 40 MG/1 ML VIAL IV SCH ×4 (05:45→22:41)
[2020-04-30] MEDS: POLYETHYLENE GLYCOL POWDER 17 GM PACK PO SCH (09:37)
[2020-04-30] MEDS: PANTOPRAZOLE 40 MG VIAL IV SCH (09:37)
[2020-04-30] MEDS: CITALOPRAM 20 MG TABLET PO SCH (09:38)
[2020-04-30] MEDS: AMIODARONE 200 MG TABLET PO SCH (09:38)
[2020-04-30] MEDS: METOPROLOL TARTRATE 25 MG TABLET PO SCH ×2 (09:38→20:29)
[2020-04-30] MEDS: HEPARIN DRIP 25,000 UNITS/500 ML PREMIX IV SCH (14:28)
[2020-04-30] MEDS: cefTRIAXone 1,000 MG in SYRINGE 1 EACH IV SCH (16:17)
[2020-04-30] MEDS: SODIUM CHLORIDE 0.9% 1,000 ML IV SCH (16:17)
[2020-05-01] MEDS: ALBUTEROL INHALER 18 GM INH SCH ×4 (00:46→17:10)
[2020-05-01] MEDS: INSULIN REGULAR 100 UNIT/ML SUBCUT SCH ×4 (00:46→17:10)
[2020-05-01] MEDS: METOCLOPRAMIDE 10 MG/2 ML VIAL IV SCH ×4 (00:46→20:48)
[2020-05-01] MEDS: methylPREDNISolone SOD SUC 40 MG/1 ML VIAL IV SCH ×4 (04:40→22:58)
[2020-05-01 05:08] LABS: Basophils % 0.1 % (0.0-0.8); Hematocrit 37.7 VOL% (42.0-52.0); Hemoglobin 12.5 GM/DL (14.0-18.0); Immature Granulocytes Absolute 0.18 #; Lymphocytes # 0.1 10*3/uL (1.4-4.0); Lymphocytes % 0.6 % (21.2-54.2); Mean Corpuscular HGB Conc 33.2 GM/DL (32-36); Mean Corpuscular Volume 84.2 FL (87-102); Mean Platelet Volume 12.5 FL (9.6-12.0); Monocytes % 4.3 % (1.7-12.7); Platelet Count 223 T/CUMM (130-400); Red Blood Count 4.48 MC/CUMM (3.8-5.5); Red Cell Distribution Width 14.4 % (9.3-17.3); White Blood Count 17.7 T/CUMM (4-12)
[2020-05-01 05:13] LABS: Calcium 8.1 MG/DL (8.5-10.1); Osmolality,Calculated 345.4 MOS/KG (273-304)
[2020-05-01 05:15] LABS: ABG Base Excess -6.5 MMOL/L (-2.5-2.5); ABG HCO3 19.1 MMOL/L (20-26); ABG Oxygen Saturation 97.1 % (95-100); ABG PCO2 42.8 MM HG (35-48); ABG TCO2 17.9 MMOL/L (23-27); Allen Test Positive; Pt O2 Delivery Device Ventilator
[2020-05-01 06:04] LABS: Lymphocytes 2 % (20-55); Platelet Estimate Adequate; Segmented Neutrophils 95 % (50-85); Total Cells Counted 100
[2020-05-01 06:05] LABS: Hypochromasia Slight
[2020-05-01] MEDS: HEPARIN DRIP 25,000 UNITS/500 ML PREMIX IV SCH ×2 (07:10→16:08)
[2020-05-01] MEDS: PANTOPRAZOLE 40 MG VIAL IV SCH (09:59)
[2020-05-01] MEDS: CITALOPRAM 20 MG TABLET PO SCH (09:59)
[2020-05-01] MEDS: POLYETHYLENE GLYCOL POWDER 17 GM PACK PO SCH (09:59)
[2020-05-01] MEDS: AMIODARONE 200 MG TABLET PO SCH (09:59)
[2020-05-01] MEDS: METOPROLOL TARTRATE 25 MG TABLET PO SCH ×2 (09:59→20:48)
[2020-05-01 11:10] LABS: Amorphous Crystals,Urine Moderate /HPF (Few); Apearance,Urine CLOUDY (Clear); Bilirubin,Urine Negative (Negative); Blood, Urine Moderate mg/dL (Negative); Glucose,Urine (UA) Negative (Negative); Ketones,Urine Negative (Negative); Mucus,Urine Few /LPF (Occasional); Nitrite,Urine Negative (Negative); Protein,Urine Negative; Urine Color Amber (Yellow); Urine Specific Gravity 1.016 (1.001-1.035); Urine Urobilinogen < 2.0 EU/DL (0.2-1.0)
[2020-05-01] MEDS ORDERED: cloNIDine 0.3 MG/24 HR PATCH TRANSDERM SCH (14:00)
[2020-05-01] MEDS: cefTRIAXone 1,000 MG in SYRINGE 1 EACH IV SCH (15:50)
[2020-05-01] MEDS: SODIUM CHLORIDE 0.9% 1,000 ML IV SCH (16:09)
[2020-05-02] MEDS: ALBUTEROL INHALER 18 GM INH SCH ×4 (00:22→19:00)
[2020-05-02] MEDS: INSULIN REGULAR 100 UNIT/ML SUBCUT SCH ×4 (00:22→17:57)
[2020-05-02] MEDS: HEPARIN DRIP 25,000 UNITS/500 ML PREMIX IV SCH ×3 (00:24→19:50)
[2020-05-02 04:52] LABS: Basophils % 0.1 % (0.0-0.8); Hematocrit 37.3 VOL% (42.0-52.0); Hemoglobin 11.8 GM/DL (14.0-18.0); Immature Granulocytes Absolute 0.22 #; Lymphocytes # 0.1 10*3/uL (1.4-4.0); Lymphocytes % 0.5 % (21.2-54.2); Mean Corpuscular HGB Conc 31.6 GM/DL (32-36); Mean Corpuscular Volume 86.3 FL (87-102); Mean Platelet Volume 12.2 FL (9.6-12.0); Monocytes % 5.3 % (1.7-12.7); Neutrophils % 93.1 % (38.7-73.9); Platelet Count 266 T/CUMM (130-400); Red Blood Count 4.32 MC/CUMM (3.8-5.5); Red Cell Distribution Width 14.3 % (9.3-17.3); White Blood Count 21.4 T/CUMM (4-12)
[2020-05-02] MEDS: methylPREDNISolone SOD SUC 40 MG/1 ML VIAL IV SCH ×3 (04:55→21:27)
[2020-05-02 05:05] LABS: ABG Base Excess -5.8 MMOL/L (-2.5-2.5); ABG HCO3 19.9 MMOL/L (20-26); ABG Oxygen Saturation 98.5 % (95-100); ABG PCO2 39.7 MM HG (35-48); ABG PH 7.317 (7.35-7.45); ABG TCO2 21.1 MMOL/L (23-27); Allen Test Positive; Pt O2 Delivery Device Ventilator
[2020-05-02 05:06] LABS: Calcium 7.8 MG/DL (8.5-10.1); Osmolality,Calculated 346.1 MOS/KG (273-304)
[2020-05-02 06:45] LABS: Anisocytosis 1+; Band Neutrophils 3 % (0-10); Lymphocytes 1 % (20-55); Platelet Estimate Normal; Segmented Neutrophils 93 % (50-85); Smudge Cells Few; Total Cells Counted 100
[2020-05-02] MEDS ORDERED: VANCOMYCIN INJ 1,000 MG in SODIUM CHLORIDE 0.9% 250 ML IV PRN (08:51)
[2020-05-02] MEDS: METOCLOPRAMIDE 10 MG/2 ML VIAL IV SCH ×2 (09:11→21:27)
[2020-05-02] MEDS: METOPROLOL TARTRATE 25 MG TABLET PO SCH ×2 (09:12→21:27)
[2020-05-02] MEDS: PANTOPRAZOLE 40 MG VIAL IV SCH (09:12)
[2020-05-02] MEDS: CITALOPRAM 20 MG TABLET PO SCH (09:12)
[2020-05-02] MEDS: MULTIVITAMIN (BEROCCA) TABLET PO SCH (09:12)
[2020-05-02] MEDS: AMIODARONE 200 MG TABLET PO SCH (09:12)
[2020-05-02] MEDS: POLYETHYLENE GLYCOL POWDER 17 GM PACK PO SCH (09:12)
[2020-05-02] MEDS ORDERED: VANCOMYCIN INJ 1,750 MG in SODIUM CHLORIDE 0.9% 500 ML IV ONE (10:00)
[2020-05-02] MEDS ORDERED: HEPARIN 5,000 UNIT/1 ML VIAL IV ONE ×2 (13:39→21:30)
[2020-05-02] MEDS: SODIUM CHLORIDE 0.9% 1,000 ML IV SCH (18:37)
[2020-05-03] MEDS ORDERED: AMIODARONE INJ 450 MG in DEXTROSE 5% 241 ML IV SCH
[2020-05-03] MEDS: INSULIN REGULAR 100 UNIT/ML SUBCUT SCH ×4 (00:20→19:00)
[2020-05-03] MEDS: ACETAMINOPHEN 325 MG TABLET PO PRN ×2 (00:41→20:48)
[2020-05-03] MEDS: METOPROLOL TARTRATE 5 MG/5 ML VIAL IV SCH ×3 (02:10→03:20)
[2020-05-03] MEDS: ALBUTEROL INHALER 18 GM INH SCH ×3 (02:40→20:20)
[2020-05-03 05:02] LABS: ABG Base Excess -5.9 MMOL/L (-2.5-2.5); ABG HCO3 19.4 MMOL/L (20-26); ABG Oxygen Saturation 86.2 % (95-100); ABG PH 7.269 (7.35-7.45); ABG TCO2 19.1 MMOL/L (23-27); Allen Test Positive; Pt O2 Delivery Device Ventilator
[2020-05-03 05:56] LABS: Basophils # 0.1 10*3/uL (0.0-0.2); Basophils % 0.3 % (0.0-0.8); Hematocrit 37.2 VOL% (42.0-52.0); Hemoglobin 11.7 GM/DL (14.0-18.0); Immature Granulocytes % 1.9 %; Immature Granulocytes Absolute 0.59 #; Lymphocytes # 0.2 10*3/uL (1.4-4.0); Lymphocytes % 0.5 % (21.2-54.2); Mean Corpuscular HGB Conc 31.5 GM/DL (32-36); Mean Corpuscular Volume 88.2 FL (87-102); Mean Platelet Volume 12.3 FL (9.6-12.0); Monocytes % 5.9 % (1.7-12.7); Neutrophils % 91.4 % (38.7-73.9); Platelet Count 285 T/CUMM (130-400); Red Blood Count 4.22 MC/CUMM (3.8-5.5); Red Cell Distribution Width 14.6 % (9.3-17.3); White Blood Count 31.9 T/CUMM (4-12)
[2020-05-03 06:36] LABS: Calcium 8.3 MG/DL (8.5-10.1); Osmolality,Calculated 362.6 MOS/KG (273-304)
[2020-05-03] MEDS: AMIODARONE INJ 450 MG in DEXTROSE 5% 241 ML IV SCH ×2 (07:30→23:40)
[2020-05-03 07:56] LABS: Hypochromasia Slight; Lymphocytes 2 % (20-55); Microcytosis Slight; Platelet Estimate Adequate; Segmented Neutrophils 86 % (50-85); Total Cells Counted 100
[2020-05-03] MEDS: MULTIVITAMIN (BEROCCA) TABLET PO SCH (08:31)
[2020-05-03] MEDS: METOPROLOL TARTRATE 25 MG TABLET PO SCH ×2 (08:31→20:36)
[2020-05-03] MEDS: CITALOPRAM 20 MG TABLET PO SCH (08:31)
[2020-05-03] MEDS: POLYETHYLENE GLYCOL POWDER 17 GM PACK PO SCH (08:32)
[2020-05-03] MEDS: methylPREDNISolone SOD SUC 40 MG/1 ML VIAL IV SCH ×2 (08:33→20:36)
[2020-05-03] MEDS: PANTOPRAZOLE 40 MG VIAL IV SCH (08:33)
[2020-05-03] MEDS: METOCLOPRAMIDE 10 MG/2 ML VIAL IV SCH ×2 (08:34→20:36)
[2020-05-03] MEDS: SODIUM CHLORIDE 0.9% 1,000 ML IV SCH ×2 (08:36→22:57)
[2020-05-03] MEDS: HEPARIN DRIP 25,000 UNITS/500 ML PREMIX IV SCH ×2 (13:30→19:01)
[2020-05-03] MEDS ORDERED: AMIKACIN 700 MG in SODIUM CHLORIDE 0.9% 100 ML IV ONE (16:00)
[2020-05-03] MEDS ORDERED: VANCOMYCIN INJ 1,000 MG in SODIUM CHLORIDE 0.9% 250 ML IV ONE (17:00)
[2020-05-04] MEDS: INSULIN REGULAR 100 UNIT/ML SUBCUT SCH ×4 (00:59→17:49)
[2020-05-04] MEDS: ALBUTEROL INHALER 18 GM INH SCH ×4 (01:59→20:45)
[2020-05-04 04:27] LABS: Basophils % 0.1 % (0.0-0.8); Hematocrit 32.7 VOL% (42.0-52.0); Hemoglobin 10.3 GM/DL (14.0-18.0); Immature Granulocytes % 0.8 %; Immature Granulocytes Absolute 0.19 #; Lymphocytes # 0.3 10*3/uL (1.4-4.0); Lymphocytes % 1.1 % (21.2-54.2); Mean Corpuscular HGB Conc 31.5 GM/DL (32-36); Mean Platelet Volume 12.7 FL (9.6-12.0); Monocytes % 3.7 % (1.7-12.7); Neutrophils % 94.3 % (38.7-73.9); Platelet Count 193 T/CUMM (130-400); Red Blood Count 3.76 MC/CUMM (3.8-5.5); Red Cell Distribution Width 14.5 % (9.3-17.3); White Blood Count 22.9 T/CUMM (4-12)
[2020-05-04 04:42] LABS: ABG Base Excess -4.3 MMOL/L (-2.5-2.5); ABG HCO3 20.7 MMOL/L (20-26); ABG Oxygen Saturation 98.3 % (95-100); ABG PCO2 37.7 MM HG (35-48); ABG PH 7.357 (7.35-7.45); ABG PO2 157.1 MM HG (80-95); ABG TCO2 21.8 MMOL/L (23-27)
[2020-05-04 04:48] LABS: Lymphocytes 1 % (20-55); Segmented Neutrophils 96 % (50-85); Total Cells Counted 100
[2020-05-04 04:49] LABS: Hypochromasia 1+; Microcytosis Slight; Platelet Estimate Adequate
[2020-05-04 05:04] LABS: Calcium 7.9 MG/DL (8.5-10.1); Osmolality,Calculated 351.6 MOS/KG (273-304)
[2020-05-04] MEDS: ACETAMINOPHEN 325 MG TABLET PO PRN (05:23)
[2020-05-04] MEDS ORDERED: AMIKACIN 700 MG in SODIUM CHLORIDE 0.9% 100 ML IV PRN (07:35)
[2020-05-04] MEDS: POLYETHYLENE GLYCOL POWDER 17 GM PACK PO SCH (08:45)
[2020-05-04] MEDS: PANTOPRAZOLE 40 MG VIAL IV SCH (08:45)
[2020-05-04] MEDS: CITALOPRAM 20 MG TABLET PO SCH (08:45)
[2020-05-04] MEDS: METOCLOPRAMIDE 10 MG/2 ML VIAL IV SCH (08:45)
[2020-05-04] MEDS: METOPROLOL TARTRATE 25 MG TABLET PO SCH ×2 (08:45→20:45)
[2020-05-04] MEDS: MULTIVITAMIN (BEROCCA) TABLET PO SCH (08:45)
[2020-05-04] MEDS: methylPREDNISolone SOD SUC 40 MG/1 ML VIAL IV SCH ×2 (08:45→20:45)
[2020-05-04] MEDS: HEPARIN DRIP 25,000 UNITS/500 ML PREMIX IV SCH (11:45)
[2020-05-04 12:18] LABS: Calcium 7.8 MG/DL (8.5-10.1); Osmolality,Calculated 359.6 MOS/KG (273-304)
[2020-05-04] MEDS ORDERED: SODIUM POLYSTYRENE SULFATE 15 GM/60 ML BOTTLE PO STA (12:50)
[2020-05-04] MEDS: AMIODARONE INJ 450 MG in DEXTROSE 5% 241 ML IV SCH (15:50)
[2020-05-04] MEDS: SODIUM CHLORIDE 0.9% 1,000 ML IV SCH (16:52)
[2020-05-04] MEDS: AMIODARONE 200 MG TABLET PO SCH (20:45)
[2020-05-04] MEDS ORDERED: INSULIN GLARGINE 100 UNIT/ML SUBCUT SCH (21:00)
[2020-05-05] MEDS: INSULIN REGULAR 100 UNIT/ML SUBCUT SCH ×4 (00:41→17:24)
[2020-05-05] MEDS: ACETAMINOPHEN 325 MG TABLET PO PRN ×2 (00:42→21:35)
[2020-05-05] MEDS: ALBUTEROL INHALER 18 GM INH SCH ×4 (02:40→20:44)
[2020-05-05 04:11] LABS: Basophils % 0.1 % (0.0-0.8); Hemoglobin 10.3 GM/DL (14.0-18.0); Immature Granulocytes % 1.2 %; Immature Granulocytes Absolute 0.35 #; Lymphocytes # 0.2 10*3/uL (1.4-4.0); Lymphocytes % 0.8 % (21.2-54.2); Mean Corpuscular HGB Conc 31.2 GM/DL (32-36); Mean Corpuscular Volume 88.7 FL (87-102); Mean Platelet Volume 12.6 FL (9.6-12.0); Monocytes % 2.8 % (1.7-12.7); Neutrophils % 95.1 % (38.7-73.9); Platelet Count 230 T/CUMM (130-400); Red Blood Count 3.72 MC/CUMM (3.8-5.5); Red Cell Distribution Width 14.5 % (9.3-17.3); White Blood Count 30.1 T/CUMM (4-12)
[2020-05-05 04:35] LABS: Calcium 8.1 MG/DL (8.5-10.1); Osmolality,Calculated 366.3 MOS/KG (273-304)
[2020-05-05 04:43] LABS: Hypochromasia 1+; Lymphocytes 1 % (20-55); Platelet Estimate Adequate; Segmented Neutrophils 97 % (50-85); Total Cells Counted 100
[2020-05-05 04:44] LABS: Microcytosis Slight
[2020-05-05 04:45] LABS: ABG Base Excess -4.9 MMOL/L (-2.5-2.5); ABG HCO3 20.3 MMOL/L (20-26); ABG Oxygen Saturation 98.3 % (95-100); ABG PCO2 34.5 MM HG (35-48); ABG PH 7.365 (7.35-7.45)
[2020-05-05] MEDS: HEPARIN DRIP 25,000 UNITS/500 ML PREMIX IV SCH ×2 (04:59→12:58)
[2020-05-05] MEDS ORDERED: INSULIN GLARGINE 100 UNIT/ML SUBCUT SCH (07:21)
[2020-05-05] MEDS: MULTIVITAMIN (BEROCCA) TABLET PO SCH (08:23)
[2020-05-05] MEDS: AMIODARONE 200 MG TABLET PO SCH ×2 (08:23→20:43)
[2020-05-05] MEDS: POLYETHYLENE GLYCOL POWDER 17 GM PACK PO SCH (08:24)
[2020-05-05] MEDS: METOPROLOL TARTRATE 25 MG TABLET PO SCH ×2 (08:24→20:42)
[2020-05-05] MEDS: PANTOPRAZOLE 40 MG VIAL IV SCH (08:24)
[2020-05-05] MEDS: CITALOPRAM 20 MG TABLET PO SCH (08:24)
[2020-05-05] MEDS: methylPREDNISolone SOD SUC 40 MG/1 ML VIAL IV SCH ×2 (08:25→20:43)
[2020-05-05] MEDS ORDERED: METOPROLOL TARTRATE 25 MG TABLET PO ONE (12:18)
[2020-05-05] MEDS ORDERED: METOPROLOL TARTRATE 25 MG TABLET PO SCH (12:19)
[2020-05-05] MEDS ORDERED: METOPROLOL TARTRATE 5 MG/5 ML VIAL IV ONE (12:20)
[2020-05-05] MEDS ORDERED: DIGOXIN 0.5 MG/2 ML AMP IV ONE ×2 (12:44→19:00)
[2020-05-05] MEDS ORDERED: AMIODARONE INJ 150 MG in DEXTROSE 5% 100 ML IV ONE (15:02)
[2020-05-05] MEDS ORDERED: AMIODARONE 150 MG/3 ML VIAL ONE (15:23)
[2020-05-05] MEDS ORDERED: AMIODARONE INJ 450 MG in DEXTROSE 5% 241 ML IV SCH (15:30)
[2020-05-05] MEDS ORDERED: NOREPINEPHRINE 8 MG in SODIUM CHLORIDE 0.9% 242 ML IV PRN (15:40)
[2020-05-05] MEDS ORDERED: NOREPINEPHRINE 4 MG/4 ML VIAL IV ONE (15:45)
[2020-05-05] MEDS ORDERED: AMIKACIN 700 MG in SODIUM CHLORIDE 0.9% 100 ML IV ONE (17:00)
[2020-05-05] MEDS ORDERED: VANCOMYCIN INJ 1,000 MG in SODIUM CHLORIDE 0.9% 250 ML IV ONE (18:00)
[2020-05-05] MEDS: AMIODARONE INJ 450 MG in DEXTROSE 5% 241 ML IV SCH (23:40)
[2020-05-06] MEDS: INSULIN REGULAR 100 UNIT/ML SUBCUT SCH ×4 (00:03→17:51)
[2020-05-06] MEDS: ALBUTEROL INHALER 18 GM INH SCH ×2 (00:04→06:00)
[2020-05-06 04:27] LABS: ABG Base Excess -3.6 MMOL/L (-2.5-2.5); ABG HCO3 21.4 MMOL/L (20-26); ABG Oxygen Saturation 98.4 % (95-100); ABG PCO2 33.7 MM HG (35-48); ABG PH 7.398 (7.35-7.45); ABG TCO2 19.4 MMOL/L (23-27); Allen Test Positive; Pt O2 Delivery Device Ventilator
[2020-05-06 04:40] LABS: Basophils % 0.1 % (0.0-0.8); Hematocrit 28.6 VOL% (42.0-52.0); Hemoglobin 9.1 GM/DL (14.0-18.0); Immature Granulocytes % 1.3 %; Immature Granulocytes Absolute 0.34 #; Lymphocytes # 0.4 10*3/uL (1.4-4.0); Lymphocytes % 1.3 % (21.2-54.2); Mean Corpuscular HGB Conc 31.8 GM/DL (32-36); Mean Corpuscular Volume 88.8 FL (87-102); Mean Platelet Volume 12.9 FL (9.6-12.0); Monocytes % 2.5 % (1.7-12.7); Neutrophils % 94.8 % (38.7-73.9); Platelet Count 161 T/CUMM (130-400); Red Blood Count 3.22 MC/CUMM (3.8-5.5); Red Cell Distribution Width 14.2 % (9.3-17.3); White Blood Count 26.8 T/CUMM (4-12)
[2020-05-06 05:02] LABS: Hypochromasia 1+; Lymphocytes 1 % (20-55); Microcytosis Slight; Platelet Estimate Adequate; Segmented Neutrophils 98 % (50-85); Total Cells Counted 100
[2020-05-06 05:13] LABS: Osmolality,Calculated 354.4 MOS/KG (273-304)
[2020-05-06] MEDS: POLYETHYLENE GLYCOL POWDER 17 GM PACK PO SCH (08:04)
[2020-05-06] MEDS: ASPIRIN 325 MG TABLET PER TUBE SCH (08:04)
[2020-05-06] MEDS: METOPROLOL TARTRATE 25 MG TABLET PO SCH ×2 (08:04→21:14)
[2020-05-06] MEDS: CITALOPRAM 20 MG TABLET PO SCH (08:04)
[2020-05-06] MEDS: MULTIVITAMIN (BEROCCA) TABLET PO SCH (08:04)
[2020-05-06] MEDS: methylPREDNISolone SOD SUC 40 MG/1 ML VIAL IV SCH ×2 (08:05→21:13)
[2020-05-06] MEDS: PANTOPRAZOLE 40 MG VIAL IV SCH (08:05)
[2020-05-06] MEDS ORDERED: DIGOXIN 0.5 MG/2 ML AMP IV SCH (09:00)
[2020-05-06] MEDS: ACETAMINOPHEN 325 MG TABLET PO PRN ×3 (09:26→21:13)
[2020-05-06] MEDS ORDERED: LEVOFLOXACIN INJ 750 MG in PREMIX 1 EACH IV ONE (10:00)
[2020-05-06] MEDS: AMIODARONE INJ 450 MG in DEXTROSE 5% 241 ML IV SCH (14:41)
[2020-05-06] MEDS: INSULIN GLARGINE 100 UNIT/ML SUBCUT SCH (21:13)
[2020-05-07] MEDS: INSULIN REGULAR 100 UNIT/ML SUBCUT SCH ×4 (02:10→17:57)
[2020-05-07] MEDS: ACETAMINOPHEN 325 MG TABLET PO PRN (04:32)
[2020-05-07 04:35] LABS: Basophils # 0.1 10*3/uL (0.0-0.2); Basophils % 0.2 % (0.0-0.8); Eosinophils % 0.1 % (0.00-10.9); Hematocrit 27.9 VOL% (42.0-52.0); Hemoglobin 8.6 GM/DL (14.0-18.0); Immature Granulocytes % 1.2 %; Lymphocytes # 0.2 10*3/uL (1.4-4.0); Lymphocytes % 0.7 % (21.2-54.2); Mean Corpuscular HGB Conc 30.8 GM/DL (32-36); Mean Corpuscular Volume 88.6 FL (87-102); Mean Platelet Volume 13.3 FL (9.6-12.0); Monocytes % 1.3 % (1.7-12.7); Neutrophils % 96.5 % (38.7-73.9); Platelet Count 133 T/CUMM (130-400); Red Blood Count 3.15 MC/CUMM (3.8-5.5); Red Cell Distribution Width 14.4 % (9.3-17.3); White Blood Count 32.6 T/CUMM (4-12)
[2020-05-07 04:55] LABS: Hypochromasia 1+; Microcytosis Slight; Platelet Estimate Adequate; Segmented Neutrophils 99 % (50-85); Total Cells Counted 100
[2020-05-07 04:58] LABS: ABG Base Excess -4.6 MMOL/L (-2.5-2.5); ABG HCO3 20.5 MMOL/L (20-26); ABG PCO2 41.4 MM HG (35-48); ABG PH 7.317 (7.35-7.45); ABG TCO2 19.8 MMOL/L (23-27); Allen Test Positive; Pt O2 Delivery Device Ventilator
[2020-05-07 05:03] LABS: Calcium 7.9 MG/DL (8.5-10.1); Osmolality,Calculated 357.1 MOS/KG (273-304)
[2020-05-07] MEDS: AMIODARONE INJ 450 MG in DEXTROSE 5% 241 ML IV SCH ×2 (06:56→06:58)
[2020-05-07] MEDS: methylPREDNISolone SOD SUC 40 MG/1 ML VIAL IV SCH ×2 (08:45→20:29)
[2020-05-07] MEDS: POLYETHYLENE GLYCOL POWDER 17 GM PACK PO SCH (08:45)
[2020-05-07] MEDS: CITALOPRAM 20 MG TABLET PO SCH (08:45)
[2020-05-07] MEDS: ASPIRIN 325 MG TABLET PER TUBE SCH (08:45)
[2020-05-07] MEDS: MULTIVITAMIN (BEROCCA) TABLET PO SCH (08:45)
[2020-05-07] MEDS: PANTOPRAZOLE 40 MG VIAL IV SCH (08:45)
[2020-05-07] MEDS: METOPROLOL TARTRATE 25 MG TABLET PO SCH ×3 (08:45→20:29)
[2020-05-07] MEDS ORDERED: DIGOXIN 0.125 MG TABLET PO SCH (09:00)
[2020-05-07] MEDS: AMIODARONE 200 MG TABLET PO SCH ×2 (09:26→20:29)
[2020-05-07] MEDS ORDERED: VANCOMYCIN INJ 1,000 MG in SODIUM CHLORIDE 0.9% 250 ML IV ONE (17:00)
[2020-05-07] MEDS: INSULIN GLARGINE 100 UNIT/ML SUBCUT SCH (20:29)
[2020-05-08] MEDS: INSULIN REGULAR 100 UNIT/ML SUBCUT SCH ×4 (00:28→17:28)
[2020-05-08] MEDS: ACETAMINOPHEN 325 MG TABLET PO PRN (00:30)
[2020-05-08 03:00] LABS: ABG Base Excess -4.1 MMOL/L (-2.5-2.5); ABG Oxygen Saturation 98.3 % (95-100); ABG PCO2 33.5 MM HG (35-48); Allen Test Positive; Pt O2 Delivery Device Ventilator
[2020-05-08 04:02] LABS: Basophils # 0.1 10*3/uL (0.0-0.2); Basophils % 0.2 % (0.0-0.8); Hematocrit 26.2 VOL% (42.0-52.0); Hemoglobin 8.2 GM/DL (14.0-18.0); Immature Granulocytes % 2.1 %; Immature Granulocytes Absolute 0.65 #; Lymphocytes # 0.3 10*3/uL (1.4-4.0); Lymphocytes % 1.1 % (21.2-54.2); Mean Corpuscular HGB Conc 31.3 GM/DL (32-36); Mean Corpuscular Volume 89.1 FL (87-102); Mean Platelet Volume 13.3 FL (9.6-12.0); Neutrophils % 95.6 % (38.7-73.9); Platelet Count 133 T/CUMM (130-400); Red Blood Count 2.94 MC/CUMM (3.8-5.5); Red Cell Distribution Width 14.1 % (9.3-17.3); White Blood Count 30.7 T/CUMM (4-12)
[2020-05-08 04:32] LABS: Osmolality,Calculated 334.1 MOS/KG (273-304)
[2020-05-08 04:47] LABS: Hypochromasia 1+; Lymphocytes 1 % (20-55); Segmented Neutrophils 98 % (50-85); Total Cells Counted 100
[2020-05-08 04:48] LABS: Microcytosis Slight; Platelet Estimate Adequate
[2020-05-08] MEDS: methylPREDNISolone SOD SUC 40 MG/1 ML VIAL IV SCH ×2 (08:48→20:46)
[2020-05-08] MEDS: POLYETHYLENE GLYCOL POWDER 17 GM PACK PO SCH (08:48)
[2020-05-08] MEDS: AMIODARONE 200 MG TABLET PO SCH ×2 (08:48→20:45)
[2020-05-08] MEDS: PANTOPRAZOLE 40 MG VIAL IV SCH (08:48)
[2020-05-08] MEDS: ASPIRIN 325 MG TABLET PER TUBE SCH (08:48)
[2020-05-08] MEDS: CITALOPRAM 20 MG TABLET PO SCH (08:48)
[2020-05-08] MEDS: METOPROLOL TARTRATE 25 MG TABLET PO SCH ×3 (08:48→20:45)
[2020-05-08] MEDS: MULTIVITAMIN (BEROCCA) TABLET PO SCH (08:48)
[2020-05-08] MEDS: LEVOFLOXACIN INJ 500 MG in PREMIX 1 EACH IV SCH (12:05)
[2020-05-08] MEDS: INSULIN GLARGINE 100 UNIT/ML SUBCUT SCH (20:45)
[2020-05-09] MEDS: INSULIN REGULAR 100 UNIT/ML SUBCUT SCH ×4 (00:09→17:25)
[2020-05-09 03:56] LABS: ABG Base Excess -6.5 MMOL/L (-2.5-2.5); ABG PH 7.335 (7.35-7.45); ABG TCO2 17.5 MMOL/L (23-27)
[2020-05-09 04:20] LABS: Calcium 7.6 MG/DL (8.5-10.1); Osmolality,Calculated 340.3 MOS/KG (273-304)
[2020-05-09 04:30] LABS: Basophils % 0.1 % (0.0-0.8); Hematocrit 25.1 VOL% (42.0-52.0); Immature Granulocytes Absolute 0.22 #; Lymphocytes # 0.3 10*3/uL (1.4-4.0); Lymphocytes % 1.3 % (21.2-54.2); Mean Corpuscular HGB Conc 31.9 GM/DL (32-36); Mean Corpuscular Volume 86.3 FL (87-102); Mean Platelet Volume 13.7 FL (9.6-12.0); Monocytes % 1.1 % (1.7-12.7); Neutrophils % 96.5 % (38.7-73.9); Platelet Count 146 T/CUMM (130-400); Red Blood Count 2.91 MC/CUMM (3.8-5.5); Red Cell Distribution Width 14.4 % (9.3-17.3); White Blood Count 22.4 T/CUMM (4-12)
[2020-05-09 04:35] LABS: Ferritin 3432.1 ng/ml (26-388)
[2020-05-09] MEDS ORDERED: DEXTROSE 50% 25 GM/50 ML VIAL IV ONE (04:42)
[2020-05-09] MEDS ORDERED: INSULIN REGULAR 100 UNIT/ML IV ONE (04:42)
[2020-05-09] MEDS ORDERED: SODIUM POLYSTYRENE SULFATE 15 GM/60 ML BOTTLE PER TUBE ONE (04:45)
[2020-05-09 06:07] LABS: Hypochromasia 1+; Lymphocytes 2 % (20-55); Microcytosis Slight; Platelet Estimate Adequate; Segmented Neutrophils 97 % (50-85); Total Cells Counted 100
[2020-05-09] MEDS: PANTOPRAZOLE 40 MG VIAL IV SCH (10:50)
[2020-05-09] MEDS: POLYETHYLENE GLYCOL POWDER 17 GM PACK PO SCH (10:51)
[2020-05-09] MEDS: CITALOPRAM 20 MG TABLET PO SCH (10:51)
[2020-05-09] MEDS: MULTIVITAMIN (BEROCCA) TABLET PO SCH (10:51)
[2020-05-09] MEDS: methylPREDNISolone SOD SUC 40 MG/1 ML VIAL IV SCH ×2 (10:51→20:27)
[2020-05-09] MEDS: ASPIRIN 325 MG TABLET PER TUBE SCH (10:52)
[2020-05-09] MEDS: AMIODARONE 200 MG TABLET PO SCH ×2 (10:52→20:29)
[2020-05-09] MEDS: METOPROLOL TARTRATE 25 MG TABLET PO SCH ×3 (10:52→20:29)
[2020-05-09] MEDS: INSULIN GLARGINE 100 UNIT/ML SUBCUT SCH (20:28)
[2020-05-09] MEDS: ACETAMINOPHEN 325 MG TABLET PO PRN (21:12)
[2020-05-10] MEDS: INSULIN REGULAR 100 UNIT/ML SUBCUT SCH ×4 (01:00→18:38)
[2020-05-10 04:31] LABS: ABG Base Excess -10.2 MMOL/L (-2.5-2.5); ABG HCO3 16.2 MMOL/L (20-26); ABG Oxygen Saturation 93.8 % (95-100); ABG PO2 85.3 MM HG (80-95); ABG TCO2 17.8 MMOL/L (23-27); Allen Test Positive; Pt O2 Delivery Device Ventilator
[2020-05-10 04:33] LABS: ABG PH 7.151 (7.35-7.45)
[2020-05-10] MEDS: ACETAMINOPHEN 325 MG TABLET PO PRN ×3 (04:50→20:47)
[2020-05-10] MEDS ORDERED: SODIUM CHLORIDE 0.9% 500 ML IV ONE ×2 (05:07→06:07)
[2020-05-10] MEDS ORDERED: SODIUM BICARBONATE 50 MEQ/50 ML VIAL IV ONE (05:07)
[2020-05-10] MEDS: PHENYLEPHRINE DRIP 40 MG/250 ML PREMIX IV PRN ×3 (06:21→20:18)
[2020-05-10 08:01] LABS: ABG Base Excess -8.3 MMOL/L (-2.5-2.5); ABG HCO3 17.6 MMOL/L (20-26); ABG Oxygen Saturation 99.1 % (95-100); ABG PCO2 41.5 MM HG (35-48); ABG PH 7.253 (7.35-7.45); ABG TCO2 17.4 MMOL/L (23-27); Allen Test Positive; Pt O2 Delivery Device Ventilator
[2020-05-10] MEDS: methylPREDNISolone SOD SUC 40 MG/1 ML VIAL IV SCH ×2 (10:32→20:18)
[2020-05-10] MEDS: PANTOPRAZOLE 40 MG VIAL IV SCH (10:32)
[2020-05-10] MEDS: CITALOPRAM 20 MG TABLET PO SCH (10:33)
[2020-05-10] MEDS: MULTIVITAMIN (BEROCCA) TABLET PO SCH (10:33)
[2020-05-10] MEDS: ASPIRIN 325 MG TABLET PER TUBE SCH (10:33)
[2020-05-10] MEDS: METOPROLOL TARTRATE 25 MG TABLET PO SCH ×3 (10:33→20:19)
[2020-05-10] MEDS: AMIODARONE 200 MG TABLET PO SCH ×2 (10:33→20:19)
[2020-05-10] MEDS: LEVOFLOXACIN INJ 500 MG in PREMIX 1 EACH IV SCH (10:34)
[2020-05-10] MEDS: POLYETHYLENE GLYCOL POWDER 17 GM PACK PO SCH (10:34)
[2020-05-10] MEDS ORDERED: DEXTROSE 5% 1,000 ML IV SCH (20:00)
[2020-05-10] MEDS: INSULIN GLARGINE 100 UNIT/ML SUBCUT SCH (20:19)
[2020-05-11] MEDS: INSULIN REGULAR 100 UNIT/ML SUBCUT SCH ×2 (01:49→06:23)
[2020-05-11] MEDS: PHENYLEPHRINE DRIP 40 MG/250 ML PREMIX IV PRN ×3 (01:50→10:20)
[2020-05-11 05:06] LABS: ABG Base Excess -12.8 MMOL/L (-2.5-2.5); ABG PCO2 42.6 MM HG (35-48); ABG PO2 78.7 MM HG (80-95); ABG TCO2 16.3 MMOL/L (23-27); Allen Test Positive; Pt O2 Delivery Device Ventilator
[2020-05-11 05:33] LABS: ABG PH 7.164 (7.35-7.45)
[2020-05-11] MEDS ORDERED: MIDAZOLAM 100 MG in SODIUM CHLORIDE 0.9% 80 ML IV PRN (05:40)
[2020-05-11] MEDS: ASPIRIN 325 MG TABLET PER TUBE SCH (09:04)
[2020-05-11] MEDS: CITALOPRAM 20 MG TABLET PO SCH (09:05)
[2020-05-11] MEDS: MULTIVITAMIN (BEROCCA) TABLET PO SCH (09:05)
[2020-05-11] MEDS: PANTOPRAZOLE 40 MG VIAL IV SCH (09:06)
[2020-05-11] MEDS: POLYETHYLENE GLYCOL POWDER 17 GM PACK PO SCH (09:06)
[2020-05-11] MEDS: methylPREDNISolone SOD SUC 40 MG/1 ML VIAL IV SCH (09:06)
[2020-05-11] MEDS: AMIODARONE 200 MG TABLET PO SCH (09:06)
[2020-05-11] MEDS: METOPROLOL TARTRATE 25 MG TABLET PO SCH (09:06)
[2020-05-11] MEDS: ACETAMINOPHEN 325 MG TABLET PO PRN (10:20)
[2020-05-12] MEDS ORDERED: predniSONE 20 MG TABLET PO SCH (09:00)
== END 2020-05-11 12:19 | disposition expired | DRG 207 ==
LOC: N.ED 20:18 → N.EDINP 04-21 01:46 → SUATTDRO 04-21 01:46 → N.CC 04-21 02:09 → N.2E 04-21 17:46 → N.CC 04-23 14:24
PROVIDERS: ADMIT Internal Medicine; ATTEND Internal Medicine